=== PATIENT | male | born 1965 | race Caucasian/White ===

== ENCOUNTER 2016-10-17 17:59 | Emergency (ER) | payer OTHER ==
[~2016-10-17] VITALS: Ht 172.7 cm; Wt 104.3 kg
[~2016-10-17 17:59] MED LIST: BENICAR40 MG PO; CITRUCEL500 MG PO; CYCLOPENTOLATE OP; NORCO 5-325 TA1 EACH PO; TOBREX5 ML OP; ZOCOR5 MG PO
[2016-10-17 18:00] VITALS: BP 179/100
[2016-10-17] MEDS ORDERED: NORVASC5 MG PO (18:19)
[2016-10-17] MEDS ORDERED: LOSARTAN-HCTZ1 EAC2 PO (18:19)
[2016-10-17] MEDS ORDERED: ROSUVASTATIN CA40 MG PO (18:19)
== END 2016-10-17 18:28 | disposition home or self-care (01) ==
LOC: ER 17:59
DX: S01.01XA Laceration without foreign body of scalp, initial encounter (principal); I10 Essential (primary) hypertension; F10.99 Alcohol use, unspecified with unspecified alcohol-induced disorder; W17.89XA Other fall from one level to another, initial encounter; Y93.89 Activity, other specified; Y92.89 Other specified places as the place of occurrence of the external cause; Y99.8 Other external cause status

== ENCOUNTER 2016-11-22 18:51 | Emergency (ER) | payer OTHER ==
[~2016-11-22] VITALS: Ht 172.7 cm; Wt 102.1 kg
[~2016-11-22 18:51] MED LIST changes: +LOSARTAN-HCTZ1 EAC2 PO; +NORVASC5 MG PO; +ROSUVASTATIN CA40 MG PO
[2016-11-22 21:04] VITALS: BP 152/85
== END 2016-11-22 21:09 | disposition home or self-care (01) ==
LOC: ER 18:51
DX: S01.01XA Laceration without foreign body of scalp, initial encounter (principal); S80.11XA Contusion of right lower leg, initial encounter; S70.11XA Contusion of right thigh, initial encounter; S80.212A Abrasion, left knee, initial encounter; I10 Essential (primary) hypertension; F10.99 Alcohol use, unspecified with unspecified alcohol-induced disorder; W11.XXXA Fall on and from ladder, initial encounter; Y93.89 Activity, other specified; Y92.098 Other place in other non-institutional residence as the place of occurrence of the external cause; Y99.8 Other external cause status

== ENCOUNTER → 2017-01-11 | Outpatient (CLI) | payer OTHER | LOC: CAT 07:52 | DX: Z13.6 Encounter for screening for cardiovascular disorders (principal) ==

== ENCOUNTER → 2018-04-12 | Outpatient (CLI) | payer OTHER ==
--- NOTE | ~2018-04-12 | EXE ---
[facility] [address] [place] [address] STRESS ECHOCARDIOGRAM Name: SUSANA ELLER JR Room #: REG [facility]#: [id number] Admission: 04/12/18 Attend Phys: Meek Monk, Discharge: Date of : 63 Date of Service: 04/12/18 1022 Report #: [id number] THIS REPORT FOR: //name// APPROVED REPORT Study performed: 04/12/2018 09:12:49 Exam: Stress Echocardiogram Indication: Chest pain , Dyspnea Patient Location: Out-Patient Stress Nurse: Gracie Daley RN Status: routine Ht: 5 ft 7 in HR: 67 bpm BP: 130/86 mmHg Medical History Medications: Listed on worksheet Allergies: No known drug allergies Cardiac Risk Factors: HTN, Hyperlipidemia, obesity Procedure The patient underwent an Exercise Stress Test using the Hugo Protocol. Blood pressure, heart rate, and EKG were monitored. An Echocardiogram was performed by wet process technician in four stages in quad fashion. At peak stress, four selected images were obtained and placed side by side with resting images for comparison. Stress Test Details Stress Test: Exercise stress testing was performed using a Hugo protocol. HR Resting HR: 67 bpm Max Heart Rate (APMHR): 166 bpm Max HR Achieved: 160 bpm Target HR (85% APMHR): 141 bpm % of APMHR: 96 Recovery HR: 86 bpm HR response to stress: Normal HR response to stress BP Resting BP: 130/86 mmHg Max BP: 190/80 mmHg Recovery BP: 154/78 mmHg BP response to stress: Normal blood pressure response to stress. ECG [facility] [address] [place] [address] STRESS ECHOCARDIOGRAM Name: SUSANA ELLER JR Room #: [id number] Admission: 04/12/18 Attend Phys: Meek Monk, Discharge: Date of : 63 Date of Service: 04/12/18 1022 Report #: [id number] Clinical Reason for Termination: Moderate/severe fatigue Exercise duration: 7 min 31 sec Highest Stage Achieved: Stage 3: 3.4 mph at 14% grade. Exercise capacity: 10.40 METs Pre-Stress Echo The resting Echocardiogram showed normal left ventricular contractility with an estimated Ejection Fraction of about 60-65%. No significant valvular abnormalities noted. Post-Stress Echo The stress Echocardiogram showed left ventricular contractility with an estimated Ejection Fraction of about >70%. Conclusion Clinical Response: Non-ischemic Exercise Capacity: Average Stress ECG Response: Non-ischemic Stress Echo Images: Non-ischemic Other Information Study Quality: Adequate <ELECTRONICALLY SIGNED> By: Meek Monk MD, [facility] 04/12/18 1022 102 1022 Meek Monk MD, FACC /INF
== END ==
LOC: CV 06:29
DX: R07.9 Chest pain, unspecified (principal); R06.00 Dyspnea, unspecified

== ENCOUNTER → 2018-07-06 | Outpatient (CLI) | payer OTHER | LOC: ULTRA 09:59 | DX: N64.4 Mastodynia (principal) ==

== ENCOUNTER 2020-07-02 15:50 | Observation (INO) | payer OTHER ==
[~2020-07-02] VITALS: Ht 172.7 cm; Wt 109.3 kg
[2020-07-02 16:00] VITALS: BP 207/113
[2020-07-02] MEDS ORDERED: GLUCOPHAGE1000 MG PO (16:35)
[2020-07-02 16:38] LABS: URINE BILIRUBIN NEGATIVE (Negative); URINE BLOOD NEGATIVE (Negative); URINE CLARITY CLEAR; URINE COLOR YELLOW; URINE GLUCOSE-RANDOM* 3+ (Negative); URINE KETONES NEGATIVE (Negative); URINE LEUKOCYTES-REFLEX NEGATIVE (Negative); URINE NITRITE-REFLEX NEGATIVE (Negative); URINE PROTEIN (DIPSTICK) NEGATIVE (Negative); URINE UROBILINOGEN 0.2 E.U./dl (0.2-1.0)
[2020-07-02 16:51] LABS: ABSOLUTE NEUTROPHILS 9.5 thou/uL (1.4-8.2); BASOPHILS 0.8 % (0.0-2.0); EOSINOPHILS 3.5 % (0.0-3.0); HEMATOCRIT 41.5 % (42.0-52.0); HEMOGLOBIN 13.8 gm/dL (14.0-18.0); LYMPHOCYTES 11.6 % (24.0-44.0); MCH 29.2 pg (26.0-34.0); MCHC 33.3 g/dL (28.0-37.0); MCV 87.8 fL (80.0-100.0); MONOCYTES 6.3 % (1.0-8.0); PLATELET COUNT 276 thou/uL (150-400); POLYS 77.8 % (36.0-66.0); RBC 4.73 mil/uL (4.50-6.00); WBC 12.2 thou/uL (4.0-11.0)
[2020-07-02 16:58] LABS: CALCIUM 9.7 mg/dL (8.5-10.1); CREATININE 1.2 mg/dL (0.7-1.3); POTASSIUM 3.9 mmol/L (3.5-5.1)
[2020-07-02 17:04] LABS: ALBUMIN 4.2 g/dL (3.4-5.0); TOTAL BILIRUBIN 0.4 mg/dL (0.2-1.0); TOTAL PROTEIN 7.7 g/dL (6.4-8.2)
[2020-07-02] MEDS ORDERED: JARDIANCE10 MG PO (19:24)
[2020-07-02] MEDS ORDERED: VASCEPA1 GM PO (19:24)
[2020-07-02] MEDS ORDERED: METFORMIN HCL500 M3 PO (19:25)
[2020-07-02 19:47] VITALS: BP 133/88
[2020-07-02 20:40] VITALS: BP 147/78
[2020-07-02] MEDS ORDERED: LO-DOSE ASPIRIN81 M1 PO (21:13)
--- NOTE | 2020-07-02 23:12 | NUR ---
Pt admitted from ED with renal colic at 2030. A/OX4,VSS. Up ad robert w/oa ny problems. Denies pain on admission, a little nausea but no needs for medication. Pt was hungry;order obtained fro carb control diet then NPO after midnight. IVF infusing via RAC w/o any problems noted. Resting quietly at this time,will continue to monitor pt.
[2020-07-03 04:38] VITALS: BP 131/79
[2020-07-03 05:10] LABS: HEMATOCRIT 38.9 % (42.0-52.0); HEMOGLOBIN 13.1 gm/dL (14.0-18.0); MCH 29.7 pg (26.0-34.0); MCHC 33.7 g/dL (28.0-37.0); MCV 88.2 fL (80.0-100.0); RBC 4.41 mil/uL (4.50-6.00); RDW 14.4 % (10.5-14.5); WBC 9.2 thou/uL (4.0-11.0)
[2020-07-03 05:26] LABS: CREATININE 1.2 mg/dL (0.7-1.3); MAGNESIUM 2.1 mg/dL (1.8-2.4); POTASSIUM 3.7 mmol/L (3.5-5.1)
[2020-07-03 05:32] LABS: APTT 23.6 Seconds (24.5-32.8); PROTIME 10.2 Seconds (9.3-11.4)
[2020-07-03 06:23] LABS: INR < 0.9
[2020-07-03 08:40] VITALS: BP 145/78
--- NOTE | 2020-07-03 14:33 | NUR ---
PT ADMITTED RELATED TO RENAL COLIC. CM REVIEWED CHART AND SPOKE WITH CARE TEAM. CM MET WITH PT AT BEDSIDE THIS DAY. PT APPEARED TO A&O X4. CM ROLE INTRODUCED. PT INDICATED HE LIVES IN A HOUSE WITH HIS WITH 2 STEPS TO ENTER AND NO STEPS INSIDE. 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 PT INDICATED NO HH OR OP THERAPY. PT TO HAVE A KUB THIS DAY. PT MAY DC HOME LATER WITH NO NEEDS IF MEDICALLY STABLE. CM FOLLOWING SHOULD ANY DC NEEDS ARISE.
[2020-07-03] MEDS ORDERED: NORCO5 PO (15:12)
[2020-07-03 15:58] VITALS: BP 145/78
[2020-07-03 16:00] VITALS: BP 142/70
--- NOTE | 2020-07-03 16:18 | NUR ---
ASSUMED CARE OF PATIENT AT SHIFT CHNAGE. ASSESSMENT CHARTED. AM MEDICATIONS HELD PER NPO STATUS; PATIENT WAS CLEARED FROM BEING NPO FROM UROLOGY AND HAD LUNCH TOLERATING WELL. KUB CAME BACK W FINDINGS INDICATING STONE IN URETER WAS NO LONGER THERE. PROVIDER WAS PAGED FOR D/C PLANNING. PATIENT TO F/U W UROLOGY AND PCP. WILL BE SENT HOME W NO NEEDS. IV PLACED THIS AM FOR MAINTENENCE FLUIDS ON R UA; DISCONTINUED BY LIDAR ANALYST SHARONA. PATIENT GIVEN DISCHARGE INSTRUCTIONS AND WRITTEN EDUCATION. VOICED NO NEEDS AT TIME OF DISCHARGE. LEFT W IN CAR.
[2020-07-05 11:32] LABS: GLYCOHEMOGLOBIN (HGB A1C) 7.7
== END 2020-07-03 17:17 | disposition home or self-care (01) ==
LOC: ER 15:50 → EROBS 19:40 → 4W 19:40
PROVIDERS: Emergency Medicine; ADMIT Internal Medicine; ATTEND Internal Medicine
DX: N13.2 Hydronephrosis with renal and ureteral calculous obstruction (principal); N23 Unspecified renal colic; Z20.822 Contact with and (suspected) exposure to COVID-19; E11.9 Type 2 diabetes mellitus without complications; E78.5 Hyperlipidemia, unspecified; K57.90 Diverticulosis of intestine, part unspecified, without perforation or abscess without bleeding; K21.9 Gastro-esophageal reflux disease without esophagitis; E66.01 Morbid (severe) obesity due to excess calories; I10 Essential (primary) hypertension; M19.90 Unspecified osteoarthritis, unspecified site; Z79.82 Long term (current) use of aspirin; Z79.84 Long term (current) use of oral hypoglycemic drugs; Z79.899 Other long term (current) drug therapy; Z68.36 Body mass index [BMI] 36.0-36.9, adult

== ENCOUNTER 2021-04-04 08:12 | Inpatient (IN) | payer OTHER ==
[~2021-04-04] VITALS: Ht 172.7 cm; Wt 101.1 kg
[~2021-04-04 08:12] MED LIST changes: +GLUCOPHAGE1000 MG PO; +JARDIANCE10 MG PO; +LO-DOSE ASPIRIN81 M1 PO; +METFORMIN HCL500 M3 PO; +NORCO5 PO; +VASCEPA1 GM PO
[2021-04-04 08:16] VITALS: BP 112/79
[2021-04-04 08:51] VITALS: BP 112/79
[2021-04-04 08:56] LABS: ABSOLUTE NEUTROPHILS 4.3 thou/uL (1.4-8.2); BASOPHILS 0.3 % (0.0-2.0); EOSINOPHILS 0.2 % (0.0-3.0); HEMATOCRIT 43.9 % (42.0-52.0); HEMOGLOBIN 14.5 gm/dL (14.0-18.0); LYMPHOCYTES 11.2 % (24.0-44.0); MCH 28.7 pg (26.0-34.0); MONOCYTES 4.5 % (1.0-8.0); PLATELET COUNT 189 thou/uL (150-400); POLYS 83.8 % (36.0-66.0); RBC 5.05 mil/uL (4.50-6.00); WBC 5.2 thou/uL (4.0-11.0)
[2021-04-04 09:08] LABS: CALCIUM 8.6 mg/dL (8.5-10.1); POTASSIUM 3.6 mmol/L (3.5-5.1)
--- NOTE | 2021-04-04 09:17 | NUR ---
CALLED RT ABOUT NEED FOR A BLOOD GAS
[2021-04-04 09:19] LABS: ALBUMIN 2.8 g/dL (3.4-5.0); APTT 32.2 Seconds (24.5-32.8); D-DIMER 0.84 ug/mLFEU (0.19-0.50); INR 0.94; PROTIME 10.3 Seconds (10.5-12.1); TOTAL BILIRUBIN 0.4 mg/dL (0.2-1.0); TOTAL PROTEIN 7.2 g/dL (6.4-8.2)
[2021-04-04 09:36] LABS: BE(vivo) 0 mmol/L (-2 to +3); HCO3 24.4 mmol/L (22.0-26.0); PCO2 38.9 mmHg (35.0-45.0); PO2 82.6 mmHg (80.0-100.0); pH 7.415 (7.360-7.450); sO2 96.3 % (92.0-98.0)
[2021-04-04] MEDS ORDERED: METFORMIN HCL1000 MG PO (10:54)
[2021-04-04] MEDS ORDERED: JARDIANCE25 MG PO (10:57)
[2021-04-04] MEDS ORDERED: POTASSIUM CITR10 ME1 PO (10:57)
[2021-04-04] MEDS ORDERED: VASCEPA1 GM PO (10:57)
[2021-04-04] MEDS ORDERED: PEPCID40 MG PO (10:58)
[2021-04-04] MEDS ORDERED: MELOXICAM15 MG PO (10:58)
[2021-04-04 11:32] LABS: URINE BILIRUBIN NEGATIVE (Negative); URINE BLOOD NEGATIVE (Negative); URINE CLARITY CLEAR; URINE COLOR YELLOW; URINE GLUCOSE-RANDOM* NEGATIVE (Negative); URINE KETONES NEGATIVE (Negative); URINE LEUKOCYTES-REFLEX NEGATIVE (Negative); URINE NITRITE-REFLEX NEGATIVE (Negative); URINE PROTEIN (DIPSTICK) TRACE (Negative); URINE SPECIFIC GRAVITY <= 1.005 (1.005-1.035)
--- NOTE | 2021-04-04 12:47 | EKG ---
[address] [address] ELECTROCARDIOGRAM REPORT Name: SUSANA ELLER Room #: 170-4 ADM IN M.R.#: [id number] Admission: 04/04/21 Attend Phys: Arsen Gutierrez MD Discharge: Date of : 63 Report #: [id number] [facility] ED Test Date: 2021-04-04 Test Time: 08:25:15 Pat Name: SUSANA ELLER Department: Room: 170 Gender: M Sales Representative Education Courses: IBETH : 1965 Requested By: Barrett Mcwilliams Order Number: [id number] MD: Derek Thomas Measurements Intervals [place] Rate: 76 P: 45 CO: 176 QRS: 28 QRSD: 103 T: 10 QT: 384 QTc: 432 Interpretive Statements Sinus rhythm Nonspecific T abnormalities, inferior leads No previous ECG available for comparison Electronically Signed On 04-04-2021 12:47:08 KINESIOTHERAPIST by Derek Thomas [email or web address] <ELECTRONICALLY SIGNED> By: Derek Thomas MD 04/04/21 1247 0825 0825 Derek Thomas MD /FILEMON
[2021-04-04 16:18] VITALS: BP 121/77; BP 129/81
[2021-04-04 16:47] VITALS: BP 135/81
[2021-04-04 19:56] VITALS: BP 116/76
[2021-04-05] VITALS (8 sets, daily range): BP systolic 100–1419; BP diastolic 62–83
--- NOTE | 2021-04-05 04:57 | HC ---
[facility] [place] [address] CONSULTATION Name: SUSANA ELLER JR Room #: 356-P ADM IN M.R.#: [id number] Admission: 04/04/21 Attend Phys: Arsen Gutierrez MD Discharge: Date of : 63 Report #: [id number] THIS REPORT FOR: cc: Susana Jurado James A. DO Barry, Joseph W. MD ~ DATE OF SERVICE: 04/04/2021 INFECTIOUS DISEASE CONSULTATION ATTENDING PHYSICIAN: Dr. Gutierrez. REASON FOR EVALUATION: COVID-19 infection, complicated by pneumonitis and respiratory failure, ARDS. HISTORY OF PRESENT ILLNESS: Chart reviewed. The patient examined. This is a 56-year-old gentleman with known history of diabetes mellitus who became ill, describes with fevers on roughly 9 days ago. At the recommendation, he was tested and was confirmed to be COVID positive. He noted increasing respiratory difficulty, had been in contact with his primary care physician, who had recommended he come to the Emergency Room if he became more short of breath. On evaluation, he was felt to be hypoxemic. He did have a pO2 of 82 on 4 liters. Lactic acid was 1.5. CT of the chest showed diffuse bilateral multifocal pneumonitis without evidence of PE, did note some loose stools, although those were transitory. He was empirically started on therapy with remdesivir and given dexamethasone as well. ALLERGIES: None known. CURRENT MEDICATIONS: Currently include dexamethasone, losartan, amlodipine, hydrochlorothiazide, enoxaparin, famotidine, aspirin, atorvastatin, metformin, insulin sliding scale, remdesivir. PAST MEDICAL HISTORY: Diabetes mellitus type 2, history of renal lithiasis, hyperlipidemia, arthritis, hypertension. SOCIAL HISTORY: Nonsmoker, no ethanol, no illicit drug use. FAMILY HISTORY: Noncontributory. REVIEW OF SYSTEMS: Otherwise, unremarkable. Denies any fevers. PHYSICAL EXAMINATION: GENERAL: He is alert, cooperative, mild distress. He is lucid, reasonably well nourished. VITAL SIGNS: Temperature 98.5, pulse 73, respirations 27, blood pressure [address] [address] CONSULTATION Name: SUSANA ELLER Room #: 356-P [facility] IN [facility].#: [id number] Admission: 04/04/21 Attend Phys: Arsen Gutierrez MD Discharge: Date of : 63 Report #: [id number] 129/81. SKIN: Warm, dry, no rashes. HEENT: Normocephalic. Extraocular muscles intact. Nasal cannula in place at 4 liters. NECK: Supple. LUNGS: Bilateral scattered coarse breath sounds. HEART: Distant, regular, do not appreciate a murmur. ABDOMEN: Obese, mildly firm, nontender. EXTREMITIES: No cyanosis. GENITOURINARY AND RECTAL: Deferred. LABORATORY DATA: Urinalysis unremarkable. Procalcitonin 0.06. ABGs: pH 7.415, pCO2 of 38.9, pO2 of 82.6 on 4 liters. PT of 10.3, INR of 0.94. D-dimer 0.84. Electrolytes: Sodium 136, potassium 3.6, chloride 99, bicarbonate is 28, anion gap of 9, BUN and creatinine 16 and 1.0, glucose of 182, AST 59, ALT 56, total protein 7.2, albumin of 2.8. Estimated GFR of 77. Lactic acid 1.5. CRP of 109. CBC: White count 5.2, H and H 14.5 and 43.9, platelets of 189. ASSESSMENT AND PLAN: COVID-19 infection, complicated by pneumonitis and respiratory failure with acute respiratory distress syndrome. We will remdesivir, corticosteroids, add vitamins, also give Actemra if available. At this point, he is not overtly toxic, but he is certainly at risk for clinical deterioration. Continue oxygen therapy support as required. <ELECTRONICALLY SIGNED> By: Marquise Patton MD 04/05/21 0457 1432 195 Marquise Patton MD /nt
[2021-04-05 05:21] LABS: ALBUMIN 2.3 g/dL (3.4-5.0); ANION GAP 9 mmol/L (7-16); BUN 19 mg/dL (7-18); CALCIUM 8.2 mg/dL (8.5-10.1); CHLORIDE 101 mmol/L (98-107); CO2 25 mmol/L (21-32); CREATININE 0.8 mg/dL (0.7-1.3); DIRECT BILIRUBIN < 0.1 mg/dL (<0.1-0.2); GLUCOSE 177 mg/dL (74-106); PHOSPHORUS 2.8 mg/dL (2.5-4.9); POTASSIUM 3.8 mmol/L (3.5-5.1); SGOT 52 U/L (15-37); SGPT 50 U/L (30-65); SODIUM 135 mmol/L (136-145); TOTAL BILIRUBIN 0.2 mg/dL (0.2-1.0); TOTAL PROTEIN 6.6 g/dL (6.4-8.2)
[2021-04-05 05:36] LABS: GLYCOHEMOGLOBIN (HGB A1C) 7.6 % (4.8-5.6)
--- NOTE | 2021-04-05 19:47 | NUR ---
RN TOOK CARE PT AT 0700-1900PM, PT IS A&0X4, PT IS ON O2 4L/MIN/NC, PT IS CONTINUING TO TREAT COVID BY IV MEDICATIONS, PT STILL HAS COUGHTING, PT GETS UP TO WALK IN HIS ROOM , PT DENIES PAIN AND SOB AT DAY SHIFT.
[2021-04-05 22:21] LABS: BE(vivo) -1.3 mmol/L (-2 to +3); HCO3 21.9 mmol/L (22.0-26.0); PCO2 32.8 mmHg (35.0-45.0); PO2 89.1 mmHg (80.0-100.0); pH 7.443 (7.360-7.450); sO2 97.2 % (92.0-98.0)
--- NOTE | 2021-04-06 00:43 | NUR ---
UPON ASSESSMENT PT NOTED TO HAVE SATS 87-90 ON 4LNC. OXYGEN NEEDS HAVE INCREASED TO 15LHFNC. FOLEY ARTIST NOTIFIED. ABGS ORDERED. DR KEY NOTIFIED OF INCREASED O2 REQUIREMENTS. ABG RESULTS CALLED TO DR KEY. NOTIFED RT OPTIFLO TO BE APPLIED NEEDED PER DR WILSON INSTRUCTIONS. DEXAMETHASONE GIVEN IV. SAT 86%. RT NOTIFIED. OPTIFLO APPLIED PER RT FIO2 100% 50LF. WILL CONTINUE TO MONITOR PT FOR CHANGES.
[2021-04-06 04:14] VITALS: BP 126/86
[2021-04-06 04:25] LABS: ALBUMIN 2.5 g/dL (3.4-5.0); ANION GAP 10 mmol/L (7-16); BUN 22 mg/dL (7-18); CALCIUM 8.4 mg/dL (8.5-10.1); CHLORIDE 103 mmol/L (98-107); CO2 24 mmol/L (21-32); CREATININE 0.8 mg/dL (0.7-1.3); DIRECT BILIRUBIN < 0.1 mg/dL (<0.1-0.2); GLUCOSE 177 mg/dL (74-106); PHOSPHORUS 3.4 mg/dL (2.5-4.9); POTASSIUM 3.9 mmol/L (3.5-5.1); SGOT 47 U/L (15-37); SGPT 43 U/L (30-65); SODIUM 137 mmol/L (136-145); TOTAL BILIRUBIN 0.3 mg/dL (0.2-1.0); TOTAL PROTEIN 6.4 g/dL (6.4-8.2)
[2021-04-06 12:46] VITALS: BP 114/71
[2021-04-06 17:30] VITALS: BP 121/66
--- NOTE | 2021-04-06 19:56 | NUR ---
RN ASSUMED PT'S CARE AT 0700-1900PM, PT IS A&OX4, PT IS ON OPTIFLOW O2 35-50L/MIN , O2 97-100%, PT'S O2SAT STAY AT 94-96%, PT IS CONTINUING IV ABX AND TREAT COVID MEDICATIONS.
--- NOTE | 2021-04-06 22:55 | NUR ---
PT ANXIOUS TONIGHT. MUCH REASSURANCE NEEDED AND GIVEN. CHECKING ON PT A MINIMUM OF Q 1 HOUR IN ORDER TO LESSEN ANXIETY. PT CURRENTLY ON OPTIFLO. NOTIFED RT HE IS READY TO BE PLACED ON BIPAP ORDERED FOR NIGHT TIME. INSTRUCTED PT TO NOT GET OOB WITHOUT HELP. HE GOT OOB AND TOOK OFF OPIFLOW TO PUT ON SWEAT PANTS AND RAISED RM TEMPERATURE. PT DESATTED INTO 70'S. HE IS NOW AT 95% BACK ON OPTIFLO. BED DOWN . CALL LIGHTIN REACH. WILL CONTINUE TO MONITOR PT FOR CHANGES.
[2021-04-07] VITALS (7 sets, daily range): BP systolic 105–135; BP diastolic 62–92
[2021-04-07 04:15] LABS: ALBUMIN 2.4 g/dL (3.4-5.0); ANION GAP 11 mmol/L (7-16); BUN 22 mg/dL (7-18); CALCIUM 8.5 mg/dL (8.5-10.1); CHLORIDE 102 mmol/L (98-107); CO2 24 mmol/L (21-32); DIRECT BILIRUBIN < 0.1 mg/dL (<0.1-0.2); GLUCOSE 264 mg/dL (74-106); PHOSPHORUS 3.7 mg/dL (2.6-4.7); POTASSIUM 4.2 mmol/L (3.5-5.1); SGOT 42 U/L (15-37); SGPT 42 U/L (16-63); SODIUM 137 mmol/L (136-145); TOTAL BILIRUBIN 0.3 mg/dL (0.2-1.0); TOTAL PROTEIN 6.3 g/dL (6.4-8.2)
--- NOTE | 2021-04-07 06:17 | NUR ---
PT WAS GIVEN 0.5 MG IV ATIVAN EARLIER AROUND 01:30 FOR ANXIETY AND NOT TOLERATING BIPAP PRESSURE. RT CHANGED TO CPAP. PT WAS ABLE TO TOLERATE CPAP BETTER AFTER ATIVAN. AROUND 04:44 O2 SAT MONITOR BEGAN TO ALARM AND BED ALARM WENT OFF . PT GOT OOB AND TURNED OFF CPAP HIMSELF . AIR NOTED TO BE COMING OUT OF OPTIFLOW. INSTRUCTED PT NOT TO BE TURNING OFF CPAP OR ATTEMPT TO TURN ON OPTI-FLOW OR ANY OTHER EQUIPMENT IN THE ROOM. REINSTRUCTED PT ON FALL PRECAUTIONS AND NEED TO USE CALL LIGHT TO CALL NS OR FLESHING MACHINE OPERATOR BEFORE GETTING OOB. URINALS ARE AT BS.CHECKING ON PT FREQUENTLY..
--- NOTE | 2021-04-07 16:00 | NUR ---
INITIAL ASSESSMENT: SW reviewed chart and spoke with nursing and attending physician. Pt was admitted from home due to COVID pneumonia. Pt placed in Enhanced Isolation. Pt has not received a COVID vaccination. Pt is afebrile and requiring optiflow. Pt is on IV meds and Remdesivir. SW spoke with pt via phone. Introduced role of SW. Pt is alert/orientated x 4. Pt states he lives at home with his family. Prior to admission, he was independent with ADLs. No use of DME. No hx of services or post-acute placement. Pt's PCP is Dr. Silverio Suggs. Plan is for pt to discharge home when medically stable. Therapy evals not ordered at this time. Nursing states pt is getting up in his room. SW is following to assist as needed with discharge planning.
--- NOTE | 2021-04-07 20:02 | NUR ---
ASSUMED PATIENT CARE AT 0700. A/O X4. ON 35L/90% OPTIFLOW. TOLERATED WELL. UP TO CHAIR. SOLWLY TOWARDS POC GOALS.
--- NOTE | 2021-04-08 05:17 | NUR ---
Patient making slow progress towards outcome goals. Oxygenation optimal on optiflow 40L/90% oxygen sats mid to upper 90's. Tolerating opti flow better. Up adlib to chair/bed, needs minimal assistance with tubing/lines. Vital signs and rhythm stable.
[2021-04-08 05:56] VITALS: BP 108/69
[2021-04-08 06:45] LABS: ALBUMIN 2.4 g/dL (3.4-5.0); CALCIUM 8.3 mg/dL (8.5-10.1); CREATININE 0.8 mg/dL (0.7-1.3); DIRECT BILIRUBIN 0.1 mg/dL (<0.1-0.2); PHOSPHORUS 4.2 mg/dL (2.5-4.9); POTASSIUM 4.2 mmol/L (3.5-5.1); TOTAL BILIRUBIN 0.3 mg/dL (0.2-1.0); TOTAL PROTEIN 5.7 g/dL (6.4-8.2)
[2021-04-08 09:23] VITALS: BP 130/72
[2021-04-08 11:55] VITALS: BP 110/77
[2021-04-08 16:40] VITALS: BP 117/80
--- NOTE | 2021-04-08 18:43 | NUR ---
PT ALERT AND ORIENTED X 4. PT EXTREMELY ANXIOUS THROUGHOUT SHIFT TODAY. PT COMPLAINS OF MULTIPLE THINGS INCLUDING WATER, NOT EMPTYING URINAL FREQUENTLY ENOUGH. PT AGITATED THROUGHT SHIFT WELL. PT TAKES OFF OXYGEN, O2 SAT MONITOR OFF WHILE HE STANDS UP TO URINATE. PT EDUCATED HE NEEDS TO LEAVE OXYGEN ON AND PT GOT EXTREMELY AGITATED AT RN AND RT. PT NO COMPLAINTS OF PAIN. WILL CONTINUE TO MONITOR.
[2021-04-08 19:45] VITALS: BP 129/76
[2021-04-09 04:54] VITALS: BP 107/65
--- NOTE | 2021-04-09 06:30 | NUR ---
Patient making slow progress towards outcome goal. Oxygenation optimal with optiflo at 30L/70% sats mis 90's. Desats to mid 80's with activity. Able to move around in bed.
[2021-04-09 07:03] VITALS: BP 114/75
[2021-04-09 11:10] VITALS: BP 110/69
[2021-04-09 16:18] VITALS: BP 108/65
--- NOTE | 2021-04-09 17:47 | NUR ---
PT ALERT AND ORIENTED X 4. PT AGITATED AND ANXIOUS THROUGHOUT SHIFT. PT FAMILY CALL MULITPLE TIMES, UPDATED X 2. SPOKE WITH DR ABOUT PRN ANXIETY MEDS, WHICH HE APPROVED PRN. DOWN TO 35 L 30% FI02. NO COMPLAINTS OF PAIN. WILL CONTINUE TO MONITOR.
[2021-04-09 19:34] VITALS: BP 109/71
--- NOTE | 2021-04-10 06:29 | NUR ---
Patient progressing towards outcome goals. Using less oxygen. Oxygenation optimal on optiflow at 35L/43%. Vital signs and rhythm stable. Foul mood improving with Xanax.
[2021-04-10 07:09] LABS: HBsAG-EMPLOYEE EXPOSURE Negative (Negative); HCV AB-EMPLOYEE EXPOSURE <0.1 (0.0-0.9)
[2021-04-10 08:22] VITALS: BP 114/61
--- NOTE | 2021-04-10 08:32 | NUR ---
Assess for length of stay. Admit with COVID+ pneumonia. Past week, eating fair to good (30-75%) without consistency. Wt is obese, BMI 34 and stable. Has been anxious. BG 152-183 with hx diabetes and steroid. On carb controlled diet order, A1C 7.6, and receives scheduled insulin, and ss insulin. Will add 1 glucerna shake per day, otherwise low nutrition risk
[2021-04-10 11:38] VITALS: BP 113/71
[2021-04-10 15:43] VITALS: BP 100/60
[2021-04-10 15:48] VITALS: BP 100/60
--- NOTE | 2021-04-10 15:51 | NUR ---
CASE DISCUSSED WITH THE CARE TEAM. PTS ANXIOUS TO GO HOME. POSSIBLE DC TOMORROW BUT WILL NEED HOME O2. REFERRAL FAXED TO [facility] THEY IN NETWORK WITH PTS INSURANCE PLAN. A PORTABLE TANK WAS LEFT WITH 3W NURSE TO BE GIVEN TO THE PT FOR THE RIDE HOME TOMORROW. UNIT STAFF TO CALL [facility] AT [phone] TO CONFIRM DC AND DELIVERY OF HOME SETUP.
--- NOTE | 2021-04-10 18:41 | NUR ---
assumed care of pt at 0700. aox4 no complaints. weaned to 3L NC. anticipate weekend dc.
[2021-04-10 20:42] VITALS: BP 106/63
[2021-04-11 04:30] VITALS: BP 107/54
[2021-04-11 07:45] VITALS: BP 106/61
--- NOTE | 2021-04-11 08:57 | NUR ---
PT MAKING PROGRESS TOWARDS GOALS. ON O2 AT 3L PER NC OVERNIGHT. LUNGS CLEAR BUT DIMINISHED THROUGHOUT. UP AD SEAN IN ROOM.
[2021-04-11] MEDS ORDERED: VITAMIN D325 MC2 PO (10:18)
[2021-04-11] MEDS ORDERED: PREDNISONE 20 M20 M1 PO (10:18)
[2021-04-11] MEDS ORDERED: VENTOLIN HFA INH8 GM INH (10:18)
[2021-04-11] MEDS ORDERED: LEVOFLOXACIN500 MG PO (10:18)
[2021-04-11] MEDS ORDERED: ACEROLA C500 MG PO (10:18)
[2021-04-11 11:36] VITALS: BP 100/60
[2021-04-11 11:52] VITALS: BP 100/60
--- NOTE | 2021-04-11 12:29 | NUR ---
PT DISCHARGING TODAY AND WILL NEED HH. FAXED REFERRAL TO [facility] SPOKE WITH BRYAN IN INTAKE SHE RECEIVED REFERRAL AND CAN ACCEPT. FAXED DC ORDERS/SUMMARY RECEIVED CONFIRMATION [facility] WILL CALL TO ARRANGE VISITS WITH PT.
--- NOTE | 2021-04-11 14:52 | NUR ---
DISCHARGE NOTE: PT DISCHARGED APPROX 1430. GIVEN DISCHARGE INFORMATION AND VERBALLY SIGNED CONSENT. SCRIPTS GIVEN TO PT. WENT OVER NEW MEDICATION INFORMATION AND UPCOMING APPOINTMENTS. SPOKE WITH PT , JONNY, TO GIVE THIS INFORMATION TO WELL. LINE DC'D AND TELEMETRY TAKEN OFF. ALL BELONGINGS WITH PT, PT LEFT WITH .
== END 2021-04-11 14:40 | disposition home health service (06) | DRG 871 ==
LOC: ER 08:12 → 3W 09:27 → EROBS 09:27 → 3W 16:18
PROVIDERS: Emergency Medicine; Nurse Practitioner Family; Specialist; ADMIT Internal Medicine; ATTEND Internal Medicine
DX: A41.89 Other specified sepsis (principal); U07.1 COVID-19; J12.82 Pneumonia due to coronavirus disease 2019; J80 Acute respiratory distress syndrome; E87.1 Hypo-osmolality and hyponatremia; I10 Essential (primary) hypertension; M19.90 Unspecified osteoarthritis, unspecified site; E11.9 Type 2 diabetes mellitus without complications; E78.5 Hyperlipidemia, unspecified; E87.6 Hypokalemia; M54.2 Cervicalgia; E66.01 Morbid (severe) obesity due to excess calories; Z68.33 Body mass index [BMI] 33.0-33.9, adult; Z91.19 Patient's noncompliance with other medical treatment and regimen; Z79.899 Other long term (current) drug therapy
CPT/HCPCS: 10879